=== PATIENT | male | born 1975 | race Asian ===

== ENCOUNTER 2018-07-19 23:59 | Emergency (ER) | payer OTHER ==
[~2018-07-19] VITALS: Ht 162.6 cm; Wt 72.7 kg
[2018-07-20 03:38] VITALS: BP 145/84
[2018-07-20] MEDS ORDERED: PROMETHAZINE HCL/CODEINE 6.25-10MG/5ML SYRUP UDCUP PO ONE (03:45)
[2018-07-20] MEDS ORDERED: AZITHROMYCIN 250 MG TABLET PO ONE (04:00)
== END 2018-07-20 03:59 | disposition home or self-care (01) ==
LOC: EMS 07-20 00:01
DX: J40 Bronchitis, not specified as acute or chronic (principal); G47.00 Insomnia, unspecified